=== PATIENT | female | born 1990 | race Two or more races ===

== ENCOUNTER 2019-10-06 18:17 | Emergency (ER) | payer OTHER ==
[~2019-10-06] VITALS: Ht 157.5 cm; Wt 65.8 kg
[2019-10-06] MEDS ORDERED: ONDANSETRON HCL 4 MG/2 ML VIAL IV ONE (18:30)
[2019-10-06] MEDS ORDERED: MORPHINE SULFATE 4 MG/ML SYR/VIAL IV ONE (18:30)
[2019-10-06] MEDS ORDERED: ASPirin 81 mg TAB PO ONE (18:30)
[2019-10-06] MEDS ORDERED: LORazepam 0.5 MG TAB PO ONE (18:45)
[2019-10-06 19:02] LABS: Basophils # (auto) 0.1 uL; Basophils % (auto) 0.4 % (0.0-2.0); Eosinophils # (auto) 0 uL; Eosinophils % (auto) 0.1 % (0.0-7.0); Hematocrit 40.8 % (36.0-46.0); Hemoglobin 13.8 g/dL (12.2-16.2); Lymphocytes # (auto) 1.1 uL; Lymphocytes % (auto) 6.8 % (10.0-50.0); Mean Corpuscular Hemoglobin 30.6 pg (28.0-32.0); Mean Corpuscular Hgb Conc. 33.9 g/dL (32.0-36.0); Mean Corpuscular Volume 90.2 fL (80.0-100.0); Monocytes # (auto) 0.6 uL; Neutrophils # (auto) 14.3 uL; Neutrophils % (auto) 88.7 % (37.0-80.0); Platelet Count (auto) 279 10^3/uL (140-450); Red Blood Cells 4.52 10^6/uL (4.0-5.20); Red Cell Distribution Width 12.9 % (11.8-14.3); White Blood Cell 16.1 10^3/uL (4.4-10.8)
[2019-10-06 19:14] LABS: INR 0.99 (0.9-1.15); Partial Thromboplastin Time 29.1 sec (23.64-32.05)
[2019-10-06 19:15] LABS: Alanine Aminotransferase 44 U/L (13-56); Albumin 3.9 g/dL (3.4-5.0); Anion Gap 11 (5-15); Aspartate Aminotransferase 13 U/L (15-37); BUN/Creatinine Ratio 16.2; Blood Urea Nitrogen 11 mg/dL (7-18); Calcium 8.9 mg/dL (8.5-10.1); Carbon Dioxide 19 mmol/L (21-32); Chloride 108 mmol/L (98-107); GFR African American 132 mL/min; GFR Non-African American 109 mL/min; Glucose 110 mg/dL (74-106); Magnesium 1.9 mg/dL (1.6-2.6); Potassium 3.5 mmol/L (3.5-5.1); Sodium 138 mmol/L (136-145)
[2019-10-06 19:20] LABS: Alkaline Phosphatase 106 U/L (45-117); Bilirubin, Total 0.3 mg/dL (0.2-1.0); Total Protein 8.4 g/dL (6.4-8.2)
[2019-10-06] MEDS ORDERED: ALBUTEROL SULF 2.5 MG/0.5ML(0.5%) NEB SOLN NEB ONE (20:45)
[2019-10-06] MEDS ORDERED: IPRATROPIUM BROM 0.5 MG/2.5ML INH SOL NEB ONE (20:45)
[2019-10-06 21:50] LABS: Lactic Acid w/Reflex 2.2 mmol/L (0.4-2.0)
[2019-10-06] MEDS ORDERED: cefTRIAXone 1GM/50ML D5W 50 ML IV ONE (22:00)
[2019-10-06] MEDS ORDERED: SODIUM CHLORIDE 0.9% 1,950 ML IV ONE (22:30)
[2019-10-06] MEDS ORDERED: VANCOMYCIN PER PHARMACY 1,000 MG IV SCH (22:30)
[2019-10-06] MEDS ORDERED: MORPHINE SULFATE 4 MG/ML SYR/VIAL IV PRN (22:30)
[2019-10-06] MEDS ORDERED: ACETAMINOPHEN 325 MG TAB PO PRN (22:30)
[2019-10-07] MEDS ORDERED: VANCOMYCIN 1GM/250ML 250 ML IV ONE
[2019-10-07 00:20] LABS: Fibrinogen 447 mg/dL (177-375)
[2019-10-07 00:53] VITALS: BP 112/53
== END 2019-10-07 01:00 | disposition short-term general hospital (02) ==
LOC: ER 18:17
DX: A41.9 Sepsis, unspecified organism (principal); J18.1 Lobar pneumonia, unspecified organism; J20.9 Acute bronchitis, unspecified
CPT/HCPCS: 36415; 71045; 80053; 82550; 83605; 83735; 83880; 84484; 84702; 85025; 85379; 85384; 85610; 85730; 87040; 93005; 94640; 96365; 96368; 96375; 99291; J0696; J2270; J2405; J3370; J7611; J7644